=== PATIENT | female | born 1940 | race Caucasian/White ===

== ENCOUNTER 2017-09-05 16:39 | Emergency (ER) | payer MEDICARE, OTHER, MEDICAID ==
[2017-09-05] MEDS ORDERED: Lidocaine 1% 10 ML MDV INJECT ONE (17:03)
[2017-09-05] MEDS ORDERED: Diphtheria,Pertussis(Acell),Tetanus Vaccine 0.5 ML SDV IM ONE (17:05)
--- NOTE | 2017-09-05 17:08 | EDM.PDOC ---
ED HPI GENERAL MEDICAL PROBLEM - General Chief Complaint: Laceration Stated Complaint: LACERATION TO L EYEBROW AFTER FALLING Time Seen by Provider: 09/05/17 17:03 Source of Information: Reports: Patient, Family (sister) History Limitations: Reports: No Limitations - History of Present Illness INITIAL COMMENTS - FREE TEXT/NARRATIVE: 77-year-old female reports to the ED after tripping and falling outside well chasing a cat. The cat got out of the house and she went to [place] after it and lost her balance. She fell forwards with direct blow into the sidewalk. She was wearing her eyeglasses which dog into her left supraorbital ridge causing a deep curvilinear laceration. She denies any true loss of consciousness. She denies any injuries to her hands wrists elbows or knees. She cannot remember when she would've had her last tetanus shot. Patient is currently receiving chemotherapy. Onset: Today Onset Date: 09/05/17 Onset Time: 16:35 Duration: Minutes: Location: Reports: Face (Left supraorbital ridge laceration.) Quality: Reports: Ache, Stabbing Severity: Mild Improves with: Reports: None Worsens with: Reports: None Context: Reports: Trauma (Tripped and fell while chasing a cat.) Associated Symptoms: Reports: No Other Symptoms Treatments BANKER MASON: Reports: Other (see below) (None.) Left Eye Pain Score (Numeric/FACES): 8 - Related Data Allergies Allergy/AdvReac Type Severity Reaction Status Date / Time clarithromycin Allergy Rash Verified 09/05/17 16:59 codeine Allergy Vomiting Verified 09/05/17 16:59 Home Meds: Home Meds Cephalexin [Keflex] 500 mg PO TID #30 capsule 09/05/17 [Rx] Past Medical History HEENT History: Reports: Impaired Vision (Has macular degeneration and does see Dr. Robison), Macular Degeneration ( for injections.) Cardiovascular History: Reports: CAD Respiratory History: Reports: COPD Musculoskeletal History: Reports: Osteoarthritis, Osteoporosis Oncologic (Cancer) History: Reports: Metastatic, Other (See Below) (Patient was identified proximally 3 months ago to have a pathological fracture of right lower rib. Subsequent investigations identified that she had diffuse metastatic cancer involving her chest liver and multiple bones including the sacrum and coccyx. The primary was felt to be a left upper lobe lung cancer with no biopsy has ever been performed here. She was diagnosed with stage IV cancer. She has received 2 months of chemotherapy and is scheduled early next week for review with oncology to determine if the chemotherapy is working or whether alternative treatment is going to be required. She had a PET scan done last week in [place]. She does receive part of her chemotherapy in [place] and the rest of it through the infusion clinic at [facility] here in [place].) Social & Family History - Tobacco Use Smoking Status *Q: Current Every Day Smoker Tobacco Use Within Last Twelve Months: Cigarettes (Still smoking 1-3 cigarettes per day. Has a 61-[id number]-vreh history.) - Caffeine Use Caffeine Use: Reports: Coffee - Alcohol Use Alcohol Use History: No - Living Situation & Occupation Living situation: Reports: Occupation: Employed ED ROS GENERAL - Review of Systems Review Of Systems: See Below Constitutional: Reports: Weakness, Fatigue, Decreased Appetite, Weight Loss ( Started about 124 pounds. She is currently 96 pounds.). Denies: Fever, Chills, Malaise HEENT: Reports: Glasses. Denies: Dental Pain, Ear Discharge, Ear Pain, Eye Discharge, Eye Pain, Hearing Loss, Nosebleed, Nose Pain, Sinus Problem, Throat Pain Respiratory: Reports: Shortness of Breath (On exertion.) Cardiovascular: Reports: Lightheadedness. Denies: Chest Pain, Blood Pressure Problem, Claudication, Orthopnea Endocrine: Reports: Fatigue (Sometimes.) GI/Abdominal: Reports: Decreased Appetite : Reports: No Symptoms Musculoskeletal: Reports: Neck Pain (Occasionally.), Back Pain Skin: Reports: Pallor Neurological: Reports: No Symptoms Psychiatric: Reports: No Symptoms Hematologic/Lymphatic: Reports: No Symptoms Immunologic: Reports: No Symptoms ED EXAM, SKIN/RASH Exam: See Below Exam Limited By: No Limitations General Appearance: Alert, WD/WN, Anxious, Mild Distress, Other (Has an obvious curvilinear laceration to her left supraorbital ridge. You can see the outline her eyeglasses weren't struck this area.) Eye Exam: Left Eye: Normal Fundi, Normal Inspection, Periorbital Changes (Deep curvilinear laceration to the left lateral supraorbital ridge.), Bilateral Eye: PERRL Nose: Normal Inspection, Normal Mucosa, No Blood Throat/Mouth: Normal Inspection, Normal Lips Head: Facial Tenderness (Laceration to the left supraorbital ridge of the face. Supraorbital ridge), Other (The bone of the supraorbital ridge on the left side is daily and and depressed.) Neck: Normal Inspection, Supple, Non-Tender, Full Range of Motion Respiratory/Chest: No Respiratory Distress, Lungs Clear, Normal Breath Sounds, Decreased Breath Sounds, Other (Decreased air entry to the lower lung esqueda.) Cardiovascular: Normal Peripheral Pulses ( Port-A-Cath left upper anterior chest.), Regular Rate, Rhythm, No Edema, Tachycardia (Heart rate 100/m at rest.) Extremities: Normal Inspection, Normal Range of Motion, Non-Tender, No Pedal Edema Neurological: Alert, Oriented, CN II-XII Intact, Normal Cognition Psychiatric: Normal Affect, Normal Mood Skin: Warm, Dry, Intact, Pallor ED SKIN PROCEDURES - Laceration/Wound Repair Left Face Lac/Wound length In cm: 3.0 (3 cm jagged laceration involving the left supraorbital ridge and lateral orbit) Appearance: Subcutaneous, Stellate, Clean Anesthetic Type: Local Local Anesthesia - Lidocaine (Xylocaine): 1% Plain Local Anesthetic Volume: Other Skin Prep: Saline (8 mL) Exploration/Debridement/Repair: Wound Explored, Minimal Debridement Closed with: Sutures Suture Size: other (5-0) # of Sutures: 10 Suture Type: Nylon, Interrupted, Simple Course - Vital Signs Last Recorded V/S: Last Vital Signs Temp 36.4 C 09/05/17 17:00 Pulse 103 H 09/05/17 17:00 Resp 16 09/05/17 17:00 BP 119/75 09/05/17 17:00 Pulse Ox 96 09/05/17 17:00 - Orders/Labs/Meds Orders: Active Orders 24 hr Category Date Time Status Vaccines to be Administered [RC] PER UNIT ROUTINE Care 09/05/17 17:05 Active Head wo Cont [CT] Stat Exams 09/05/17 17:04 Taken Maxillofacial w/o CM [Max Facial Sinus wo Cont] [CT] Exams 09/05/17 18:05 Taken Stat Meds: Medications Discontinued Medications Generic Name Dose Route Start Last Admin Trade Name Freq PRN Reason Stop Dose Admin Cephalexin 500 mg 09/05/17 17:55 09/05/17 18:14 Keflex PO 09/05/17 17:56 500 mg ONETIME ONE Administration Diphtheria/Tetanus/Acell Pertussis 0.5 ml 09/05/17 17:05 09/05/17 17:26 Adacel IM 09/05/17 17:06 0.5 ml .ONCE ONE Administration Heparin Sodium (Porcine) 500 units 09/05/17 19:38 09/05/17 19:43 Heparin Lock Flush 100 Units/Ml FLUSH 09/05/17 19:39 500 units ASDIRECTED ONE Administration Cefazolin Sodium/Dextrose 1 gm 50 mls @ 100 mls/hr 09/05/17 18:02 09/05/17 19 :04 / Premix IV 09/05/17 18:31 100 mls/hr ONETIME ONE Administration Lidocaine HCl 10 ml 09/05/17 17:03 09/05/17 18:14 Xylocaine 1% INJECT 09/05/17 17:04 Not Given ONETIME ONE Lidocaine HCl Confirm 09/05/17 17:24 09/05/17 18:16 Xylocaine 1% Administered 09/05/17 17:25 Not Given Dose 50 ml .ROUTE .STK-MED ONE Lidocaine HCl 50 ml 09/05/17 18:16 09/05/17 18:16 Xylocaine 1% INJECT 09/05/17 18:17 50 ml ONETIME ONE Administration - Radiology Interpretation Free Text/Narrative:: 77-year-old female presents the ED after tripping and falling outside of her home today. She was chasing after her cat who got out of the house. She landed hard with direct blow on the concrete sidewalk. This broke or eyeglasses which appeared to be the culprit in terms of digging into her skin and causing the curvilinear laceration over the supraorbital ridge. She has a proximally 2.5 cm laceration in this area. Wound will need to be closed with sutures. Patient is receiving chemotherapy at present and is quite frail. She apparently runs a low platelet count. Therefore CT of her head will be performed. Tdap will be updated to day . History suggests that she was diagnosed with stage IV cancer with a primary thought to be in the left upper lobe of her lung about 3 months ago after developing a pathological fracture one of her right lower ribs. Cancer is found in almost all of her bones as well as her liver and lung. MRI of the brain apparently did not show any metastatic disease. She had a PET scan done last week and is scheduled to see oncology tomorrow for the results and determine further course of chemotherapy treatment. She's been receiving chemotherapy 3 days a week for the last 2 months. - Re-Assessments/Exams Free Text/Narrative Re-Assessment/Exam: 09/05/17 18:31 CT of the brain reveals mild atrophy of the brain parenchyma with no intra-intracranial hemorrhage or mass effect. No acute infarct. No cerebral edema. 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 Comminuted mildly displaced fractures of the left orbital roof and medial wall of the left orbit are identified with nondisplaced fracture of the anterior wall of the left frontal sinus. Is a small amount of blood within the left frontal sinus as well. There is mild subcutaneous emphysema anterior and superior to the left orbit. Note there is a large amount of fluid in the left mastoid air cells suggesting hemorrhage. There is also fluid in the middle ear cavity which would suggest a basal skull fracture. I will therefore arrange for Ancef 1 g IV to be given through her Port-A-Cath. Will also have CT of her maxillofacial bones carried out to further define the extent of the fraction in the posterior aspect of the orbit. Case discussed with Dr. Weber, maxillofacial surgeon on- call and he would be glad to see the patient in the morning he did not see that there was any emergency to see her rose. Plan will be to have her seen in the clinic at 8:00 tomorrow morning since she will be traveling to [place] with her son rose at any rate. 09/05/17 19:10: I have repaired the jagged 3 cm laceration above the left supraorbital ridge. Maxillofacial bone CT reveal that the fracture is much more extensive then visualized on the head CT. Globes lenses and eye chart her muscles and optic nerves are intact bilaterally small amount of hemorrhage and fat stranding as well as intraorbital emphysema is in the superior left orbit is identified small air-fluid level in the left frontal sinus evident. Comminuted fracture of the anterior wall of the left frontal sinus extending laterally and posteriorly to involve the left orbital roof. Lateral aspect of the left frontal sinus and the left orbital roof are posteriorly displaced approximately 8 mm the left orbital roof anterior margin is also angulated downward and is adjacent to the globe. There are orbital wall fracture extends inferiorly immediately to the medial orbital wall. Right left pterygoid plates are intact right and left temporomandibular joints are normal. Case discussed with --neurosurgeon bank consultant- and he felt after reviewing her CT`s he felt that from neurosurgical point of view he would not need to be involved. The plan will be therefore for her to follow-up with Dr. Weber early tomorrow morning at [facility]. Patient was given a prescription for cephalexin 500 mg 3 times a day for the next 10 days. She'll use either Tylenol or Advil for pain if needed. Departure - Departure Time of Disposition: 19:43 Disposition: Home, Self-Care 01 Condition: Fair Clinical Impression: Facial fracture due to fall Qualifiers: Encounter type: initial encounter Fracture type: open Qualified Code(s): S02.92XB - Unspecified fracture of facial bones, initial encounter for open fracture Laceration of face Qualifiers: Encounter type: initial encounter Qualified Code(s): S01.81XA - Laceration without foreign body of other part of head, initial encounter - Discharge Information Prescriptions: Cephalexin [Keflex] 500 mg PO TID #30 capsule Instructions: Orbital Floor Fracture, Non-Blowout, Laceration Care, Adult, Easy -to-Read Referrals: Paco Randolph MD [Primary Care Provider] - Forms: ED Department Discharge Additional Instructions: Evaluation the emergency room today in regards to fall outside with blunt force trauma to the left side of your forehead. The CT scan reveals that you have a complex fracture of the supraorbital ridge above her eyebrow which came into the frontal sinus and also involve the roof of your eyeball socket as well as the anterior wall and medial of the orbit. 3 cm laceration of the supraorbital ridges occurred making this an open fracture. You therefore were started on IV antibiotic Ancef 1 g intravenously while in the emergency room. He will need to see a maxillofacial surgeon in regards to need for surgical management of this problem. I have discussed the case with Dr. Weber maxillofacial surgeon and he would be willing to see when his clinic at [facility] tomorrow morning. His office number is [phone]. I would suggest attending his clinic for as a walk-in in yard pipe grader in the hopes of seeing him prior to going to your oncology appointment since there is a possibility that he will also receive chemotherapy tomorrow and he could take as long as 6 hours. A copy of your CT scans have been forwarded to the [facility] in [facility]. May use ice pack to your eye area for 20 minutes out of every 3 hours tonight and tomorrow. May use pain medication of choice. - My Orders Last 24 Hours: My Active Orders 09/05/17 17:04 Head wo Cont [CT] Stat 09/05/17 17:05 Vaccines to be Administered [RC] PER UNIT ROUTINE 09/05/17 18:05 Maxillofacial w/o CM [Max Facial Sinus wo Cont] [CT] Stat - Assessment/Plan Last 24 Hours: My Active Orders 09/05/17 17:04 Head wo Cont [CT] Stat 09/05/17 17:05 Vaccines to be Administered [RC] PER UNIT ROUTINE 09/05/17 18:05 Maxillofacial w/o CM [Max Facial Sinus wo Cont] [CT] Stat
[2017-09-05] MEDS ORDERED: Lidocaine 1% 50 ML MDV ONE (17:24)
[2017-09-05] MEDS ORDERED: Cephalexin 500 MG Cap PO ONE (17:55)
[2017-09-05] MEDS ORDERED: ceFAZolin 1 GM in Premix Bag 1 BAG IV ONE (18:02)
[2017-09-05] MEDS ORDERED: Lidocaine 1% 50 ML MDV INJECT ONE (18:16)
--- NOTE | 2017-09-06 07:53 | CT ---
Head CT Technique: Multiple axial sections through the brain were obtained. Intravenous contrast was not utilized. Comparison: No prior head CT exam. Findings: Ventricles along with basal cisterns and sulci over the convexities are mildly prominent. Old lacunar infarct is noted within the basal ganglia on both sides. Mild diminished density is noted within portions of the periventricular and subcortical white matter compatible with small vessel ischemic demyelination change. No other abnormal parenchymal densities are seen. No evidence of intracranial hemorrhage. No midline shift or mass effect is seen. Atherosclerotic calcification is seen within the vertebral vessels and within the carotid siphon. Mildly displaced and comminuted fracture noted within the left orbital roof. This will be further described on facial bone study. Soft tissue density noted within the left mastoid sinus. This finding is most likely chronic. No other acute calvarial abnormality is seen. Impression: 1. Comminuted and displaced fracture within the superior left orbit which will be described further on CT facial bone exam. 2. Senescent change as described above. 3. Soft tissue density within the left mastoid sinus and middle ear cavity suspicious for chronic infection. 4. No acute intracranial abnormality is seen. Diagnostic code #3 Agree with preliminary report issued by [facility] ([facility] preliminary report dictated on 09/05/17, 6:59 PM Central Time)
--- NOTE | 2017-09-06 07:53 | CT ---
CT facial bones Technique: Multiple axial sections through the facial bones were obtained. Reconstructed coronal and sagittal images were reviewed. Findings: Fracture is identified within the superior orbital roof on the left side with inward displacement of fracture fragments by about 7.5 mm. Soft tissue air is seen within the superior left orbit as well as within the scalp. Fracture involves a small portion of the left side of the frontal sinus and extends laterally at the junction of the superior and lateral orbital wall. Soft tissue density and fluid is seen within the ethmoid sinus felt compatible with previous trauma. Minimal fracture seen within the medial orbital wall. Inferior orbital floor appears intact. Mucosal thickening is seen within the upper right maxillary sinus as well as right frontal sinus which is felt to be pre-existing and chronic. Mild soft tissue swelling is seen within the superior orbit. Right and left globes are symmetric in size. Impression: 1. Mildly displaced superior orbital fracture. Minimally displaced fracture within the medial left orbit wall. 2. Slight increased density within the sinuses as well as fluid compatible with change from prior trauma. 3. Mild subcutaneous edema is seen around the upper orbit on the left side. Diagnostic code #3 Agree with preliminary report issued by [facility] ([facility] preliminary report dictated on 09/05/17, 7:40 PM Central Time)
== END 2017-09-05 19:51 | disposition home or self-care (01) ==
LOC: JD.ED 16:39
DX: S02.19XB Other fracture of base of skull, initial encounter for open fracture (principal); S01.81XA Laceration without foreign body of other part of head, initial encounter; C34.12 Malignant neoplasm of upper lobe, left bronchus or lung; F17.210 Nicotine dependence, cigarettes, uncomplicated; Z23 Encounter for immunization; Z88.5 Allergy status to narcotic agent; Z88.1 Allergy status to other antibiotic agents; W01.0XXA Fall on same level from slipping, tripping and stumbling without subsequent striking against object, initial encounter
CPT/HCPCS: 12013; 70450; 70486; 90471; 90715; 96365; 99284; A9270; J0690; J1642; 12002